=== PATIENT | female | born 1960 | race Caucasian/White ===

== ENCOUNTER 2019-04-25 18:45 | Emergency (ER) | payer BC, OTHER ==
[~2019-04-25] VITALS: Ht 160 cm; Wt 81.6 kg
--- NOTE | 2019-04-25 20:01 | Diagnostic Imaging Report ---
EXAM: CHEST 2 VIEWS DATE: 04/25/2019 7:10 PM INDICATION: ^sob ^[id number] ^[id number] COMPARISON: None FINDINGS: Lines and tubes: None Heart size normal. No focal pulmonary opacity, pleural effusion or pneumothorax. Small nodular density lateral to the upper right hilum likely related to overlapping structures and adjacent monitoring device. Upper abdomen unremarkable. No acute bony abnormality. IMPRESSION: No evidence for acute disease. Signed by: Dr. Zacarias Subramanian M.D. on 04/25/2019 7:58 PM
== END 2019-04-25 20:25 | disposition home or self-care (01) ==
LOC: ER 18:45
DX: R05 Cough (principal); J30.1 Allergic rhinitis due to pollen
CPT/HCPCS: 71046; 99283

== ENCOUNTER → 2020-11-11 | Day surgery (SDC) | payer BC ==
[~2020-11-11] MED LIST: ACETAMINOPHEN 1000 MG/100 ML 100 ML IV ONE; ASPIRIN81 MG PO; BRISDELLE7.5 MG PO; CRESTOR10 MG PO; SINGULAIR10 MG PO; ZYRTEC-D TABLE1 EACH PO
[2020-11-11 17:15] VITALS: BP 119/71
== END | disposition home or self-care (01) ==
LOC: OR 12:33
PROVIDERS: ATTEND Internal Medicine Gastroenterology
DX: Z12.11 Encounter for screening for malignant neoplasm of colon (principal); K31.7 Polyp of stomach and duodenum; K29.70 Gastritis, unspecified, without bleeding; K29.80 Duodenitis without bleeding; K21.00 Gastro-esophageal reflux disease with esophagitis, without bleeding; K22.89 Other specified disease of esophagus; K57.30 Diverticulosis of large intestine without perforation or abscess without bleeding; K64.8 Other hemorrhoids; G43.909 Migraine, unspecified, not intractable, without status migrainosus; E78.00 Pure hypercholesterolemia, unspecified; J30.2 Other seasonal allergic rhinitis; Z91.041 Radiographic dye allergy status; Z01.810 Encounter for preprocedural cardiovascular examination; Z01.812 Encounter for preprocedural laboratory examination; Z20.822 Contact with and (suspected) exposure to COVID-19; Z79.82 Long term (current) use of aspirin; Z68.32 Body mass index [BMI] 32.0-32.9, adult
CPT/HCPCS: 43239; 45378; 93005; C9113; J0131; U0002

== ENCOUNTER → 2023-01-19 | Outpatient (REF) | payer BC ==
[~2023-01-19] MED LIST changes: -ACETAMINOPHEN 1000 MG/100 ML 100 ML IV ONE
== END ==
LOC: US 08:42
PROVIDERS: ATTEND Nurse Practitioner
DX: R10.11 Right upper quadrant pain (principal); K29.70 Gastritis, unspecified, without bleeding
CPT/HCPCS: 76700

== ENCOUNTER → 2024-12-06 | Outpatient (REF) | payer BC ==
[~2024-12-06] MED LIST changes: +PROTONIX20 MG PO
== END ==
LOC: US 08:40
PROVIDERS: ATTEND Nurse Practitioner
DX: R10.10 Upper abdominal pain, unspecified (principal)
CPT/HCPCS: 76700